=== PATIENT | female | born 1985 | race Hispanic/Latino ===

== ENCOUNTER 2019-11-27 23:59 | Emergency (ER) | payer OTHER ==
[2019-11-28] MEDS ORDERED: ERYTHROMYCIN BASE 0.5% OPHTH OINT 1 GM TUBE ONE ×2 (00:56→00:59)
[2019-11-28] MEDS ORDERED: TETRACAINE HCL 0.5% 4 ML OPHTH SOLN ONE (00:58)
[2019-11-28] MEDS ORDERED: FLUORESCEIN SODIUM 1 STRIP STRIP ONE (00:59)
[2019-11-28] MEDS ORDERED: IBUPROFEN 200 MG TAB ONE (01:24)
[2019-11-28] MEDS ORDERED: ACETAMINOPHEN EXTRA STRENGTH 500 MG TABLET ONE (01:24)
== END 2019-11-28 01:37 | disposition home or self-care (01) ==
LOC: EDH 23:59
DX: S05.02XA Injury of conjunctiva and corneal abrasion without foreign body, left eye, initial encounter (principal); S05.01XA Injury of conjunctiva and corneal abrasion without foreign body, right eye, initial encounter; Z98.890 Other specified postprocedural states; Z72.0 Tobacco use; X58.XXXA Exposure to other specified factors, initial encounter; Y93.89 Activity, other specified; Y92.89 Other specified places as the place of occurrence of the external cause; Y99.8 Other external cause status

== ENCOUNTER 2020-04-07 11:02 | Emergency (ER) | payer OTHER ==
[2020-04-07] VITALS (13 sets, daily range): BP systolic 115–132; BP diastolic 64–83
[2020-04-07] MEDS ORDERED: LIDOCAINE HCL 1% 20 ML VIAL ONE (11:27)
[2020-04-07] MEDS ORDERED: PROPOFOL 10 MG/ML 20ML VIAL IV ONE ×2 (12:06→18:39)
[2020-04-07] MEDS ORDERED: SODIUM CHLORIDE 0.9% 1000ML 1,000 ML IV ONE (12:27)
[2020-04-07] MEDS ORDERED: LIDOCAINE PF 2% 5ML ABBOJECT ONE (18:39)
[2020-04-07] MEDS ORDERED: SUCCINYLCHOLINE CHLORIDE 20 MG/ML 10 ML VIAL ONE (18:39)
[2020-04-07] MEDS ORDERED: MIDAZOLAM HCL 1 MG/ML 2ML VIAL ONE (18:40)
[2020-04-07] MEDS ORDERED: ONDANSETRON HCL 4 MG/2 ML VIAL ONE (18:40)
[2020-04-07 18:42] LABS: BASOPHILS % (AUTO) 0.3 % (0.0-5.0); HEMATOCRIT 41.6 % (36-48); LYMPHOCYTES % (AUTO) 16.2 % (21.0-51.0); MEAN CORPUSCULAR HEMOGLOBIN 27.8 pg (27.0-33.0); MEAN CORPUSCULAR HGB CONC 32.9 g/dL (32.0-36.0); MEAN CORPUSCULAR VOLUME 84.4 fL (79-99); MONOCYTES % (AUTO) 7.1 % (3.0-13.0); PLATELET COUNT (AUTO) 382 K/uL (130-400); RED BLOOD CELL COUNT(AUTO) 4.93 MIL/uL (4.00-5.50); RED CELL DISTRIBUTION WIDTH 13.3 % (11.0-15.5); WHITE BLOOD COUNT (AUTO) 11.2 K/uL (4.8-10.8)
[2020-04-07 18:53] LABS: CREATININE 0.8 mg/dL (0.5-1.5); POTASSIUM 3.9 mmol/L (3.5-5.1)
[2020-04-07 18:58] LABS: ALBUMIN 4.1 g/dL (3.5-5.0); BILIRUBIN,TOTAL 0.5 mg/dL (0.2-1.0); TOTAL PROTEIN, SERUM 7.6 g/dL (6.0-8.3)
== END 2020-04-07 21:04 | disposition home or self-care (01) ==
LOC: EDH 11:02 → UNDOADMIN 11:03 → EDHIP 11:03 → EDH 21:04
DX: S93.105A Unspecified dislocation of left toe(s), initial encounter (principal); Z20.828 Contact with and (suspected) exposure to other viral communicable diseases; Z98.890 Other specified postprocedural states; Z91.013 Allergy to seafood; X58.XXXA Exposure to other specified factors, initial encounter; Y93.89 Activity, other specified; Y92.89 Other specified places as the place of occurrence of the external cause; Y99.8 Other external cause status
CPT/HCPCS: 28660; 36415; 71045; 73660 ×2; 80053; 84703; 85025; 87426; 93005; 99285; A4930; A6223; J0330; J2001; J2250; J2405; J2704 ×2; J7030; 99151

== ENCOUNTER 2025-01-22 04:50 | Emergency (ER) | payer BC, OTHER ==
[~2025-01-22] VITALS: Ht 180.3 cm; Wt 122.5 kg
--- NOTE | 2025-01-22 05:30 | ERN ---
ED Note History of Present Illness Stated Complaint: FALL, RT KNEE PAIN Chief Complaint: Knee Injury/Swelling Time Seen by MD: 05:21 Dictation: This is a 39-year-old morbidly obese female who presented to the emergency room with complaints of right knee pain and swelling. This started an hour prior to the presentation and apparently there was a family dispute and patient tripped and fell she also heard a pop in the knee and ambulation was painful so she came into the ER for further evaluation no other injuries to the head neck or other organs. No loss of consciousness no blood thinners. Temperature 97.3 pulse 105 respirations 20 blood pressure 136/89 with a pulse oximetry of 97% on room air Allergies: Coded Allergies: shellfish derived (Unverified Allergy, Unknown, 01/22/25) Past Medical History Past Medical History: No Pertinent History Surgical History: Family History: Negative Social History: Negative RN Note Reviewed/Agreed w/PFSH: Yes Review of System Dictation Constitutional: Negative for fever,chills, and weight loss Eyes: Negative for injury, pain,redness, and discharge ENT: Negative for injury,pain or swelling Cardiovascular: Negative for chest pain, palpitations, and edema Respiratory: Negative for shortness of breath, cough, and wheezing, Abdomen/GI: Negative for abdominal pain, nausea, vomiting, diarrhea, and constipation Back: Negative for injury and pain : Negative for injury, bleeding and discharge MS/Extremity: Positive for injury and swelling of the right knee Skin: Negative for rash, and discoloration Neuro: Negative for headache, weakness, numbness, tingling, and seizure Psych: Negative for suicide ideation, homicidal ideation, and hallucinations Initial Vital Sign VS Vital Signs Date Time Temp Pulse Resp B/P (MAP) Pulse Ox O2 Delivery O2 Flow Rate FiO2 01/22/25 04:55 97.3 105 20 136/89 97 Room Air 01/22/25 05:54 0 21 Physical Exam Dictation General: awake, alert, NAD morbidly obese female Head/Face: Normocephalic, atraumatic Eyes: PERRL, EOMI, vision at baseline ENT: oral cavity clear, TMs clear, no signs of infection Neck: Trachea midline, supple, no nuchal rigidity Cardiovascular: RRR, normal S1/S2, No MRGs, no JVD Respiratory: CTAB, no respiratory distress, No rales or wheezes Abdomen: Soft, non-tender, non-distended, normal bowel sounds, no guarding or rebound. Skin: Warm, dry, normal turgor, no rash MS/Extremity: Pulses equal, no cyanosis, neurovascular intact, FROM no obvious abrasions lacerations or ecchymosis noted right knee mildly swollen, Neuro: COAx4, GCS 15, strength 5/5, CN 2-12 intact, normal cerebellar exam, normal gait, Psych: Normal behavior, mood, and affect normal Extremities-trace edema without any palpable cords, Homans sign is negative Results (Laboratory/Radiology) Labs Reviewed?: Yes X-RAY Comment: REASON: FALL. FEELS "POPPING". PAINFUL AMBULATION ORDERING PHYSICIAN: ANA SALDAÑA MD PROCEDURE: KNEE 4V RT - KNEE 4+VWS RT EXAM: CR Right Knee, 3 views CLINICAL HISTORY: Fall. COMPARISON: None provided. FINDINGS: No acute fracture or aggressive appearing osseous lesion. Mild tricompartmental knee joint osteoarthritis. No suprapatellar effusion. Grossly unremarkable soft tissues. IMPRESSION: No acute bony abnormality is evident. Mild tricompartmental knee joint osteoarthritis. /[place] DICTATED BY: ALEJA MOLINA Jr., MD DATE: 01/22/25648 ELECTRONICALLY SIGNED BY: ALEJA MOLINA Jr., MD DATE: 01/22/25648 ED Course ED Course Orders Procedure Category Date Status Time Knee 4+Vws Rt RAD 01/22/25 Resulted 05:03 Ketorolac PHA 01/22/25 Complete Tromethamine 30mg/Ml 06:30 Place Knee Imobilizer CPOE 01/22/25 Transmitted To: (Er) 06:11 Methylprednisolone PHA 01/22/25 Complete Succ 40mg (Solu-Medro 06:30 Current Medications Medications (Trade) Dose Ordered Sig/Kin Route PRN Reason Start Time Stop Time Status Last Admin Dose Admin Ketorolac Tromethamine (toRADol) 30 mg ONCE ONCE IM 01/22/25 06:30 01/22/25 06:31 DC 01/22/25 06:22 Methylprednisolone Sodium Succinate (Solu-medROL 40MG) 60 mg ONCE ONCE IM 01/22/25 06:30 01/22/25 06:31 DC 01/22/25 06:22 Vital Signs Date Time Temp Pulse Resp B/P (MAP) Pulse Ox O2 Delivery O2 Flow Rate FiO2 01/22/25 05:54 98.8 88 18 108/69 98 Room Air* 0 21 01/22/25 04:55 97.3 105 20 136/89 97 Room Air We will perform imaging and administer medications according to the patient's complaint. Once the results are available, will review and personally interpreted the labs to rule out any acute life-threatening emergency the trach require immediate intervention and treatment. I will then re-evaluate the patient after treatment and diagnostic exams have return to determine whether the patient requires any further testing, can safely be discharged home or need further admission to hospital for additional treatment and evaluation. Medical Decision Making MDM Differential diagnosis: Contusion, fracture of the patella, dislocation of the patella or knee joint, heme arthrosis, fracture of the long bones, injury to the meniscus or ligament This is a 39-year-old morbidly obese female who presented to the emergency room with complaints of right knee pain and swelling. This started an hour prior to the presentation and apparently there was a family dispute and patient tripped and fell she also heard a pop in the knee and ambulation was painful so she came into the ER for further evaluation no other injuries to the head neck or other organs. No loss of consciousness no blood thinners. Temperature 97.3 pulse 105 respirations 20 blood pressure 136/89 with a pulse oximetry of 97% on room air X-ray of the right knee-no evidence of any fracture dislocation or any obvious soft tissues. We will compartment narrowing suggestive of osteoarthritis was noted I updated the patient and her family member on the x-ray findings and empiric nonsteroidals for now for pain medicine Rationale: Tests considered and ordered secondary to shared decision making include: Previous outside records reviewed: Old ER visits. Risk of complication and/or morbidity or mortality of patient management: None Medications-Per medication reconciliation Need for hospitalization: Patient does not meet criteria for hospitalization. Need for emergency major/minor surgery: No There are no social concerns with this patient. Prescription drug management Prescriptions will include symptomatic care Patient's prior external medical records from other ER visits were reviewed by me as indicated. Prior testing and results from previous visits were reviewed. Prior tests were taken into account with medical decision making and resource utilization, independent historian/historians were used to obtain complete medical history. I independently interpreted the test that were performed, results were reviewed by me and considered findings on radiology if ordered. Medical management and examination interpretation discussions were had by me with other qualified healthcare professionals as indicated for the patient's care. Problem List Problem List: (1) Contusion of knee, right (2) Osteoarthritis of right knee (3) Morbid obesity DX & DISP Disposition: Discharge Departure Impression: Primary Impression: Osteoarthritis of right knee Additional Impressions: Contusion of knee, right, Morbid obesity Condition: Stable Additional Instructions: Patient and the caregiver have been informed of all the diagnostic tests and the imaging conducted during the today's visit to the emergency room and has verbalized understanding of the results I have personally reviewed and interpreted all diagnostic exams performed here in the ER today as well as the vital signs documented by the nursing staff. The patient is now being discharged to home and should follow up with the primary care physician or the specialist as directed by the ER staff. Follow-up with primary care provider in 1 to 2 days. Take medications as directed here in the emergency room. Okay to continue home medications unless otherwise discussed during your visit in the emergency room today. Return to your nearest emergency room if symptoms worsen or if there is no improvement. Call 911 if you need immediate assistance. Take Tylenol or Motrin [id number] as needed and if no contraindications are present. Increase oral hydration. A wound culture or urine culture was ordered here in the emergency room department please follow-up with primary care provider and advise them to get repeat ports from our facility. If you had any Fuentes wrap/splints that were applied here, please do not remove them until you see your primary care or specialty. Referrals: SELF,REFERRAL (PCP) ANA SALDAÑA MD Jan 22, 2025 05:30
--- NOTE | 2025-01-22 05:47 | NUR ---
ASSUMED PT CARE
--- NOTE | 2025-01-22 05:50 | HMCIMG ---
EXAM: CR Right Knee, 3 views CLINICAL HISTORY: Fall. COMPARISON: None provided. FINDINGS: No acute fracture or aggressive appearing osseous lesion. Mild tricompartmental knee joint osteoarthritis. No suprapatellar effusion. Grossly unremarkable soft tissues. IMPRESSION: No acute bony abnormality is evident. Mild tricompartmental knee joint osteoarthritis. /[place]
[2025-01-22 05:54] VITALS: BP 108/69; PULSE 88; RESP 18; TEMP 98.8; O2SAT 98
[2025-01-22] MEDS: Solu-medROL 40MG VIAL IM ONE (06:22)
== END 2025-01-22 06:35 | disposition home or self-care (01) ==
LOC: EDH 04:50
DX: S80.01XA Contusion of right knee, initial encounter (principal); M17.11 Unilateral primary osteoarthritis, right knee; E66.01 Morbid (severe) obesity due to excess calories; Z91.013 Allergy to seafood; Z98.890 Other specified postprocedural states; W18.09XA Striking against other object with subsequent fall, initial encounter; Y93.89 Activity, other specified; Y92.89 Other specified places as the place of occurrence of the external cause; Y99.8 Other external cause status
CPT/HCPCS: 99284; 73564; 96372 ×2; J1885; J2919